=== PATIENT | female | born 1965 | race Caucasian/White ===

== ENCOUNTER 2023-04-17 21:19 | Emergency (ER) | payer OTHER ==
[2023-04-17] MEDS ORDERED: SODIUM CHLORIDE 1,000 ML IV ONE (21:37)
[2023-04-17 21:47] VITALS: BP 148/99; PULSE 104; RESP 16; TEMP 98.7; BMI 29.1
[2023-04-17 21:53] LABS: HEMATOCRIT 42.5 % (32.4-45.2); HEMOGLOBIN 14.3 G/dL (10.7-15.3); MCH 32.5 pg (25.7-33.7); MCHC 33.6 g/dl (32.0-36.0); MEAN CELL VOLUME 96.8 fl (80-96); MEAN PLT VOLUME 8.3 fl (7.5-11.1); PLATELET COUNT 302.4 10^3/uL (134-434); RBC 4.39 10^6/uL (3.60-5.2); RDW 13.1 % (11.6-15.6); WHITE BLOOD COUNT 12.9 10^3/uL (4.0-10.8)
[2023-04-17 22:03] LABS: ALBUMIN 4.4 g/dl (3.4-5.0); BLOOD UREA NITROGEN 14.4 mg/dl (7-18); CREATININE 0.8 mg/dl (0.6-1.3); POTASSIUM 4.4 mmol/L (3.5-5.1); SGOT/AST 18.5 U/L (15-37); SGPT/ALT 31.3 U/L (7-52); TOT PROT 7.1 g/dl (6.4-8.2)
[2023-04-17] MEDS ORDERED: ACETAMINOPHEN 1000 MG/100 ML BAG IVPB ONE (22:07)
[2023-04-17] MEDS ORDERED: ACETAMINOPHEN INJECTION 100 ML IVPB ONE (22:18)
[2023-04-17] MEDS ORDERED: CIPROFLOXACIN 500 MG TABLET (RESTRICTED TO ID) PO ONE (23:07)
[2023-04-17] MEDS ORDERED: metroNIDAZOLE 500 MG TABLET PO ONE (23:07)
[2023-04-17] MEDS ORDERED: metroNIDAZOLE 250 MG TABLET ONE (23:09)
[2023-04-17] MEDS ORDERED: CIPROFLOXACIN 250 MG TABLET (RESTRICTED TO ID) PO ONE (23:09)
[2023-04-18 00:05] LABS: BILIRUBIN,TOTAL 0.3 mg/dL (0.2-1)
== END 2023-04-17 23:21 | disposition home or self-care (01) ==
LOC: FER 21:19
PROC: 3E033NZ Introduction of Analgesics, Hypnotics, Sedatives into Peripheral Vein, Percutaneous Approach (ICD-10-PCS; principal; 2023-04-17)
PROC: 3E0337Z Introduction of Electrolytic and Water Balance Substance into Peripheral Vein, Percutaneous Approach (ICD-10-PCS; 2023-04-17)
DX: K57.32 Diverticulitis of large intestine without perforation or abscess without bleeding (principal)
CPT/HCPCS: 36415; 74177-TC; 80053; 85027; 99285-25; Q9967